=== PATIENT | male | born 1960 | race Caucasian/White ===

== ENCOUNTER 2022-06-24 13:29 | Emergency (ER) | payer MEDICARE, OTHER ==
[~2022-06-24] VITALS: Ht 180.3 cm; Wt 93.0 kg
[2022-06-24] MEDS ORDERED: CARV12.530 PO (13:44)
[2022-06-24] MEDS ORDERED: FURO40TA5 PO (13:44)
[2022-06-24] MEDS ORDERED: METF-446 PO (13:44)
[2022-06-24] MEDS ORDERED: LISI5TAB21 PO (13:44)
[2022-06-24] MEDS ORDERED: SPIR-37 PO (13:44)
[2022-06-24] MEDS ORDERED: INSLAN SQ (13:44)
[2022-06-24] MEDS ORDERED: ASPI-1444 PO (13:44)
[2022-06-24 15:15] VITALS: BP 136/93
[2022-06-24] MEDS ORDERED: AMOX1TAB16 PO (15:55)
== END 2022-06-24 16:34 | disposition home or self-care (01) ==
LOC: EMS 13:29
DX: S91.109A Unspecified open wound of unspecified toe(s) without damage to nail, initial encounter (principal); I25.10 Atherosclerotic heart disease of native coronary artery without angina pectoris; I10 Essential (primary) hypertension; E11.9 Type 2 diabetes mellitus without complications; F17.210 Nicotine dependence, cigarettes, uncomplicated; X58.XXXA Exposure to other specified factors, initial encounter; Y93.89 Activity, other specified; Y92.89 Other specified places as the place of occurrence of the external cause; Y99.8 Other external cause status
CPT/HCPCS: 82962; 99283

== ENCOUNTER 2023-04-16 15:03 | Emergency (ER) | payer MEDICARE, OTHER ==
[~2023-04-16] VITALS: Ht 180.3 cm; Wt 100.0 kg
[~2023-04-16 15:03] MED LIST: AMOX1TAB16 PO; ASPI-1444 PO; CARV12.530 PO; FURO40TA5 PO; INSLAN SQ; LISI5TAB21 PO; METF-446 PO; SPIR-37 PO
[2023-04-16] MEDS ORDERED: EMPA25TA3 PO (16:09)
[2023-04-16 19:39] VITALS: BP 108/57; PULSE 70; RESP 16; TEMP 98.1
[2023-04-16] MEDS ORDERED: SODIUM CHLORIDE 0.9% 3,000 ML IV ONE (20:13)
[2023-04-16 20:26] LABS: GLUCOMETER DEV NAME(LOC) ER.6; GLUCOSE,POINT OF CARE 362 MG/DL (70-110)
[2023-04-16 20:57] LABS: APPEARANCE,URINE CLEAR (CLEAR); BILIRUBIN,URINE NEGATIVE (NEGATIVE); COLOR,URINE LIGHT YELLOW (YELLOW); GLUCOSE, URINE (UA) >=1000 mg/dL (NEGATIVE); KETONES,URINE NEGATIVE (NEGATIVE); LEUKOCYTE ESTERASE ,URINE NEGATIVE (NEGATIVE); NITRATE,URINE NEGATIVE (NEGATIVE); OCCULT BLOOD,URINE NEGATIVE (NEGATIVE); PH,URINE 5.5 (5.0-8.0); PROTEIN,URINE 100-200,SEE CONFIRM mg/dL (NEGATIVE); SPECIFIC GRAVITIY, URINE 1.021 (1.003-1.030); UROBILINOGEN,URINE <=1.0 mg/dL (<=1.0)
[2023-04-16 21:07] LABS: RBC,URINE None Seen /HPF (0-2); SULFOSALICYLIC ACID,URINE 2+ (Negative); WBC,URINE None Seen /HPF (0-5)
[2023-04-16 21:08] LABS: BACTERIA,URINE None Seen /HPF (None Seen)
[2023-04-16 21:50] LABS: BASOPHILS % (AUTO) 0.7 % (0.0-2.0); EOSINOPHILS % (AUTO) 1.8 % (1.0-6.0); HEMATOCRIT 35.5 % (41-53); HEMOGLOBIN 10.9 g/dL (13.5-17.5); LYMPHOCYTES # (AUTO) 1.7 K/uL (1.0-4.8); LYMPHOCYTES % (AUTO) 10.8 % (22.0-44.0); MEAN CORPUSCULAR HEMOGLOBIN 25.7 pg (26.0-34.0); MEAN CORPUSCULAR HGB CONC 30.8 G/dL (31.0-37.0); MEAN CORPUSCULAR VOLUME 84 fL (80-100); MONOCYTES # (AUTO) 0.9 K/uL (0.1-1.0); MONOCYTES % (AUTO) 5.6 % (2.0-9.0); NEUTROPHILS # (AUTO) 12.7 K/uL (1.8-7.7); NEUTROPHILS % (AUTO) 81.1 % (40.0-70.0); PLATELET COUNT (AUTO) 358 K/uL (150-450); RED BLOOD CELL COUNT(AUTO) 4.25 MIL/uL (4.50-5.90); RED CELL DISTRIBUTION WIDTH 14.6 % (11.5-14.5); WHITE BLOOD COUNT (AUTO) 15.7 K/uL (4.5-11.0)
[2023-04-16 21:59] LABS: CALCIUM, TOTAL 9.6 mg/dL (8.8-10.5); CREATININE 2.65 mg/dL (0.60-1.30); POTASSIUM 5.3 mmol/L (3.5-5.1)
[2023-04-16 22:05] LABS: ALBUMIN 2.6 g/dL (3.4-5.0); BILIRUBIN,TOTAL 0.2 mg/dL (0.1-1.0); TOTAL PROTEIN, SERUM 8.2 g/dL (6.4-8.2)
== END 2023-04-16 22:04 | disposition left against medical advice (07) ==
LOC: EMS 15:11
DX: M79.674 Pain in right toe(s) (principal); Z53.21 Procedure and treatment not carried out due to patient leaving prior to being seen by health care provider
CPT/HCPCS: 80053; 81001; 81002; 82962; 84145; 85025; 99281

== ENCOUNTER 2024-11-24 13:48 | Emergency (ER) | payer MEDICARE, OTHER ==
[~2024-11-24] VITALS: Ht 180.3 cm; Wt 103.0 kg
[~2024-11-24 13:48] MED LIST changes: -AMOX1TAB16 PO; +EMPA25TA3 PO
[2024-11-24 14:19] VITALS: BP 133/74; PULSE 94; RESP 18; TEMP 99.5; O2SAT 99
== END 2024-11-24 15:53 | disposition left against medical advice (07) ==
LOC: EMS 13:50
DX: M25.512 Pain in left shoulder (principal); Z53.21 Procedure and treatment not carried out due to patient leaving prior to being seen by health care provider